=== PATIENT | male | born 1985 | race Caucasian/White ===

== ENCOUNTER → 2018-05-14 | Outpatient (CLI) | payer OTHER ==
--- NOTE | 2018-05-14 11:01 | EST ---
EXERCISE STRESS AGE: 21 SEX: M HT: 71" WT: 181 PROTOCOL: Abhi Stress Test. STAGE: 3 DURATION OF EXERCISE: 7:15 HEART RATE REST: 82 BLOOD PRESSURE REST: 111/81 MAXIMUM HEART RATE ACHIEVED: 162 MAXIMUM BLOOD PRESSURE: 202/67 85% MPHR: 159 100% MPHR: 187 METS: 8.7 INDICATIONS: Chest pain. CLINICAL INFORMATION: A 32-year-old male patient with chest pain and he underwent exercise stress test. Baseline heart rate 82 beats per minute. Baseline blood pressure 111/81 mmHg. Baseline 12-lead ECG shows normal sinus rhythm normal cardiac intervals with early repolarization abnormality inferolaterally. Patient exercised on a Abhi protocol for 7 minutes 15 seconds achieving a peak of 162 beats per minute. He had a mildly hypertensive response to exercise. Peak blood pressure 202/67 mmHg. He did complain of chest discomfort through the test but there was no ECG evidence for ischemia. No arrhythmias noted. IMPRESSION: Average exercise capacity, mildly hypertensive response to exercise. Chest pain during the stress test. No ECG evidence for ischemia or arrhythmia. MMODL / IJN: [id number] /
== END | disposition home or self-care (01) ==
LOC: RADNMMAIN 08:29
PROVIDERS: ATTEND Family Medicine
DX: R07.9 Chest pain, unspecified (principal); I10 Essential (primary) hypertension
CPT/HCPCS: 93017